=== PATIENT | male | born 1960 | race Caucasian/White ===

== ENCOUNTER 2017-01-12 23:49 | Emergency (ER) | payer OTHER ==
[~2017-01-12 23:49] MED LIST: AMB5 PO; ASAB PO; ATV.5 PO; CRESTOR40 MG PO; EFFIENT10 PO; HYDROCODONE; LOFIB160 PO; LOP25 PO; LORT7 PO; LORTAB10 PO; PRIN5 PO; ULTRAM50 PO; WELLSR150 PO
[2017-01-13 00:13] LABS: BASOPHILS 0.3 %; BASOPHILS ABSOLUTE 0.03 10/3/uL (0.0-0.16); EOSINOPHILS 2.1 %; EOSINOPHILS ABSOLUTE 0.19 10/3/uL (0.0-0.53); ER CBC TAT 0 Hrs 07 Mins; HEMATOCRIT 50.5 % (40.0-51.0); HEMOGLOBIN 17.5 g/dL (13.6-17.8); IMMATURE GRANULOCYTES 0.2 %; IMMATURE GRANULOCYTES ABSOLUTE 0.02 10/3/uL (0.0-0.11); LYMPHOCYTES 29.4 %; LYMPHOCYTES ABSOLUTE 2.64 10/3/uL (0.67-4.30); MANUAL DIFF NO %; MEAN CORPUS HGB CONC 34.7 g/dL (32.0-36.0); MEAN CORPUSCULAR HEMOGLOB 31.8 pg (26.0-34.0); MEAN CORPUSCULAR VOLUME 91.7 fL (80-100); MEAN PLATELET VOLUME 12.1 fL (9.2-13.0); MONOCYTES 6.7 %; NEUTROPHILS 61.3 %; PLATELET COUNT 218 10/3/uL (150-400); RBC DISTRIBUTION WIDTH 12.9 % (12.0-16.0); RED CELL COUNT 5.51 10/6/uL (4.7-6.1)
[2017-01-13 00:19] LABS: INTERNATIONAL NORMAL RATI 1.1 UNITS (-); PARTIAL THROMBO TIME 34.2 SEC (22.5-37.2); PROTIME (NOT ORD) 13.8 SEC (12.0-14.5)
[2017-01-13 00:34] LABS: BUN (BLOOD UREA NITROGEN) 17 MG/DL (6-23); CALCIUM, SERUM 9.4 MG/DL (8.5-10.4); CHEST PAIN PROFILE TAT 0 Hrs 28 Mins; CHLORIDE, SERUM 101 MMOL/L (96-112); CO2 (CARBON DIOXIDE) 28 MMOL/L (24-34); GFR AFRICAN AMERICAN 87 ML/MIN (>=60); GFR NON AFRICAN AMERICAN 75 ML/MIN (>=60); GLUCOSE, SERUM 96 MG/DL (60-99); POTASSIUM, SERUM 4.6 MMOL/L (3.5-5.3); SODIUM, SERUM 139 MMOL/L (135-148); TROPONIN I <0.02 NG/ML (<0.05)
[2017-02-20] MEDS ORDERED: ALEVE220 MG PO (09:00)
== END 2017-01-13 04:15 | disposition home or self-care (01) ==
LOC: ER 23:49
PROVIDERS: Emergency Medicine
DX: R07.9 Chest pain, unspecified (principal); I25.2 Old myocardial infarction; Z95.5 Presence of coronary angioplasty implant and graft; Z79.899 Other long term (current) drug therapy; Z79.82 Long term (current) use of aspirin
CPT/HCPCS: 71020; 80048; 83735; 84484; 85025; 85610; 85730; 93005; 99285

== ENCOUNTER 2017-01-15 14:53 | Observation (INO) | payer OTHER ==
--- NOTE | ~2017-01-15 | HP ---
History And Physical [place] [address] [facility] [place]. [address] NAME: KAMRYN ALBERT : 62 STATUS : ADM Mayuri PAT#: [id number] AGE: 56 ADM/REG DATE : 01/15/17 MR#: [id number] REPORT SERV DATE: 01/16/17 DICTATED BY: YANI KEYES DATE: 01/16/17 REPORT STATUS : Draft TRANSCRIBED BY: ARMANDO DATE: 01/16/17 DATE OF ADMISSION: 01/15/2017 AUDIOLOGY TECHNICIAN: Jese Benitez M.D. CHIEF COMPLAINT: Chest pressure. HISTORY OF PRESENT ILLNESS: A very pleasant 56-year-old white gentleman with known history of CAD, status post JULIANA to RCA in 2011 with PTCA to his left subclavian artery by Dr. Ley in 2012. The patient reports episodic chest pain since 01/12/2017. He did come to our emergency room on Sunday recently, but chose to go home. Prior to any stress testing the patient states that on 01/12/2017 around 2300, he experienced some shortness of breath and chest pressure that is when he came to our emergency room was checked out with lab and EKG, but chose to go home. Sunday, he was gardening and had similar symptoms. He reports associated shortness of breath, diaphoresis, and dizziness. Denies nausea or belching. He did see his PCP on 01/15/2017. [facility] was notified as well. He has an appointment with Dr. Benitez on 01/18/2017, but he had chest pain later on Sunday around 1400 described as a different and stabbing in nature that radiated down his left arm. He did take one nitroglycerin with relief, and he felt it prudent to come to the emergency room. He rates his chest pain an 8/10 at its most intense at time of interview in the CPOU. He is pain free. The episode lasted several minutes in duration. There seems to be some degree of an exertional component with gardening, but also he has had symptoms at rest. The patient confirms a personal history of one heart attack in 2011. Denies history of stroke, DVT, or pulmonary embolus. The patient denies any recent fever or chills. No palpitations. No syncopal episodes. Denies PND or orthopnea. PAST MEDICAL HISTORY: 1. CAD. a. Status post [place] 2011 with JULIANA to RCA. b. PVD status post PTCA to the left subclavian artery by Dr. Ley followed every six months. 2. Hypertension. 3. Dyslipidemia. 4. Chronic back pain. 5. Ongoing tobacco abuse. 6. Positive family history for early CAD. PAST SURGICAL HISTORY: 1. Left knee surgery. 2. Lumbar surgery. 3. Tonsillectomy. SOCIAL HISTORY: He is with two children. He is a window installation subcontractor. Does not have a structured exercise routine. Smokes at least two packs of cigarettes per day for 40 History And Physical [address] [address] NAME: KAMRYN ALBERT : 62 STATUS : ADM Mayuri PAT#: [id number] AGE: 56 ADM/REG DATE : 01/15/17 MR#: [id number] REPORT SERV DATE: 01/16/17 DICTATED BY: YANI KEYES DATE: 01/16/17 REPORT STATUS : Draft TRANSCRIBED BY: ARMANDO DATE: 01/16/17 years. Denies alcohol or illicits. FAMILY HISTORY: Mother with a stroke at 59, remains alive at 75. Father of cirrhosis. REVIEW OF SYSTEMS: A 14-point review of systems performed, significant for HPI. No other contributory diagnoses identified. ALLERGIES: INTOLERANCE TO A FLU SHOT, THE SITE SWELLED. HOME MEDICINES: Aspirin 81 mg daily, Lipitor 80 mg daily, vitamin B 1000 mcg daily, gingko biloba daily, Halfway 10/325 every six hours p.r.n., levothyroxine 50 mcg daily, Ativan 0.5 mg every 8 hours p.r.n., Skelaxin DC'd, Robaxin 750 every four hours p.r.n., nitroglycerin p.r.n., Prevagen daily. PHYSICAL EXAMINATION: VITAL SIGNS: Blood pressure 152/81, pulse 76, respirations 16, temperature 98.8, O2 saturation 98% on room air. Height 5 feet 8 inches, weight 173 pounds, BMI 26. GENERAL: Cooperative, in no apparent distress. HEENT: Pupils 2 mm, sclera nonicteric. Nares patent. Moist mucous membranes. No xanthelasma. NECK: Trachea midline, no thyromegaly. No JVD. No bruits. LYMPH: No cervical lymphadenopathy. No supraclavicular lymphadenopathy. RESPIRATORY: Unlabored respirations. Breath sounds clear bilaterally to posterior auscultation. No wheezes or rhonchi. CARDIOVASCULAR: Regular rate. No murmur, rub or gallop appreciated. Extremities without edema. Pulses 2+ bilaterally. ABDOMEN: Soft, nontender, nondistended, normal bowel sounds auscultated throughout. No organomegaly. SKIN: Warm, dry extremities. No pallor, or cyanosis. PSYCHIATRIC: Appropriate affect. Alert, oriented x3. LABORATORY DATA: Troponin less than 0.02 x3. Potassium 4.5, BUN 14, creatinine 0.95, glucose 89. Magnesium 2.2. WBC 9.3, hemoglobin 16.0, hematocrit 45.9, platelet count 205,000. EKG, sinus rhythm with inferior Q-waves. MPI 09/2015: Poncho stage 2, 6 minutes, 7 METs, no ischemia. PCI [address] Flor, JULIANA to mid RCA. 2012 PTCA of left subclavian artery by Av. CTA of chest, no PE. Solitary mildly enlarged right peritracheal lymph node of uncertain clinical significance. Minor subsegmental atelectasis both lung bases. ASSESSMENT AND PLAN: 1. Substernal chest pain. The patient with multiple risk factors. The patient has been History And Physical [address] [address] NAME: KAMRYN ALBERT : 62 STATUS : ADM Mayuri PAT#: [id number] AGE: 56 ADM/REG DATE : 01/15/17 MR#: [id number] REPORT SERV DATE: 01/16/17 DICTATED BY: YANI KEYES DATE: 01/16/17 REPORT STATUS : Draft TRANSCRIBED BY: ARMANDO DATE: 01/16/17 observed in the CPOU overnight to rule out myocardial infarction with serial enzymes and serial EKGs. Held n.p.o. We will proceed with MPI today. The patient will be discharged home with low risk, no ischemia. If anything suggestive of ischemia, Cardiology referral will be initiated. Otherwise, the patient will be asked to follow up with PCP and Dr. Benitez as scheduled. 2. Coronary artery disease, continue home medications. 3. Peripheral vascular disease, follow up Dr. Ley. Continue home medications. 4. Hypertension, monitor blood pressure. Continue home medications. 5. Dyslipidemia, continue statin. 6. Ongoing tobacco abuse. Counseled strongly regarding cessation for cardiovascular health and well being. 7. Abnormal CTA of chest with an enlarged right paratracheal lymph node. Follow up with PCP for further evaluation, referral and/or repeat CT scan. TRAM/ARMANDO MARTÍN Allen, ORDER RUNNER-BC / [id number] CC: Yani Keyes, MARTÍN, ORDER RUNNER-BC Kerethi Muñoz II, Jr., M.D.
[2017-01-15 15:12] LABS: BASOPHILS 0.3 %; BASOPHILS ABSOLUTE 0.03 10/3/uL (0.0-0.16); EOSINOPHILS 1.4 %; EOSINOPHILS ABSOLUTE 0.13 10/3/uL (0.0-0.53); ER CBC TAT 0 Hrs 10 Mins; HEMATOCRIT 45.9 % (40.0-51.0); IMMATURE GRANULOCYTES 0.3 %; IMMATURE GRANULOCYTES ABSOLUTE 0.03 10/3/uL (0.0-0.11); LYMPHOCYTES 26.6 %; LYMPHOCYTES ABSOLUTE 2.47 10/3/uL (0.67-4.30); MEAN CORPUS HGB CONC 34.9 g/dL (32.0-36.0); MEAN CORPUSCULAR HEMOGLOB 31.7 pg (26.0-34.0); MEAN CORPUSCULAR VOLUME 91.1 fL (80-100); MEAN PLATELET VOLUME 12.1 fL (9.2-13.0); MONOCYTES 7.2 %; MONOCYTES ABSOLUTE 0.67 10/3/uL (0.21-1.20); NEUTROPHILS 64.2 %; NEUTROPHILS ABSOLUTE 5.94 10/3/uL (2.02-8.40); PLATELET COUNT 205 10/3/uL (150-400); RBC DISTRIBUTION WIDTH 13.1 % (12.0-16.0); RED CELL COUNT 5.04 10/6/uL (4.7-6.1); WHITE BLOOD CELLS 9.3 10/3/uL (4.5-10.5)
[2017-01-15 15:13] LABS: MANUAL DIFF NO %
[2017-01-15 15:14] LABS: PROTIME (NOT ORD) 13.2 SEC (12.0-14.5)
[2017-01-15 15:15] LABS: PARTIAL THROMBO TIME 33.4 SEC (22.5-37.2)
[2017-01-15 15:22] LABS: BUN (BLOOD UREA NITROGEN) 14 MG/DL (6-23); CALCIUM, SERUM 8.9 MG/DL (8.5-10.4); CHEST PAIN PROFILE TAT 0 Hrs 20 Mins; CHLORIDE, SERUM 103 MMOL/L (96-112); CO2 (CARBON DIOXIDE) 28 MMOL/L (24-34); CREATININE 0.95 MG/DL (0.70-1.30); GFR AFRICAN AMERICAN 104 ML/MIN (>=60); GFR NON AFRICAN AMERICAN 90 ML/MIN (>=60); GLUCOSE, SERUM 89 MG/DL (60-99); POTASSIUM, SERUM 4.5 MMOL/L (3.5-5.3); SODIUM, SERUM 139 MMOL/L (135-148); TROPONIN I <0.02 NG/ML (<0.05)
[2017-01-15] MEDS ORDERED: METHOC750B PO (18:56)
[2017-01-15] MEDS ORDERED: NITROSTAT0.4 MG SL (18:56)
[2017-01-15] MEDS ORDERED: LIPITOR80 MG PO (18:57)
[2017-01-15] MEDS ORDERED: ATV.5 PO (18:57)
[2017-01-15] MEDS ORDERED: NORCO1 TAB PO (18:57)
[2017-01-15] MEDS ORDERED: CYANO1000T PO (18:58)
[2017-01-15] MEDS ORDERED: GINKGO BILO2 PO (18:58)
[2017-01-15] MEDS ORDERED: SKELAXIN8 PO (18:58)
[2017-01-15] MEDS ORDERED: LEVOTHYROXIN50 MCG PO (18:59)
[2017-01-15] MEDS ORDERED: HALF81 PO (18:59)
[2017-01-15] MEDS ORDERED: PREVAGEN PO (18:59)
[2017-02-20] MEDS ORDERED: ALEVE220 MG PO (09:00)
== END 2017-01-16 15:20 | disposition home or self-care (01) ==
LOC: ER 14:53 → CDU1 22:01 → CDU2 22:14
PROVIDERS: Emergency Medicine
DX: R07.2 Precordial pain (principal); I25.10 Atherosclerotic heart disease of native coronary artery without angina pectoris; I25.2 Old myocardial infarction; I73.9 Peripheral vascular disease, unspecified; I10 Essential (primary) hypertension; E78.5 Hyperlipidemia, unspecified; Z98.890 Other specified postprocedural states; F17.210 Nicotine dependence, cigarettes, uncomplicated; Z88.8 Allergy status to other drugs, medicaments and biological substances; Z79.82 Long term (current) use of aspirin; Z79.899 Other long term (current) drug therapy
CPT/HCPCS: 71020; 71275; 78452; 80048; 83735; 84484; 85025; 85610; 85730; 93005; 93017; 99285; A9270-GY; A9502; G0378; Q9967

== ENCOUNTER 2017-02-21 09:13 | Day surgery (SDC) | payer OTHER ==
--- NOTE | ~2017-02-21 | CN ---
Consultation Report [facility] [address] [place]. [address] NAME: KAMRYN REDDY : 62 STATUS : [facility]#: [id number] AGE: 56 ADM/REG DATE : 02/21/17 MR#: [id number] REPORT SERV DATE: 02/22/17 DICTATED BY: BLAIR SHERIDAN DATE: 02/21/17 REPORT STATUS : Draft TRANSCRIBED BY: MODBraden DATE: 02/21/17 CONSULTATION DATE OF CONSULTATION: Dear Dr. Daniele Bacon: Thank you for requesting my opinion regarding evaluation and management of Mr. Kamryn Reddy's mediastinal lymphadenopathy and tobacco abuse. Mr. Reddy is an extremely pleasant 56-year-old gentleman with a significant past medical history of heavy tobacco abuse and former alcoholic, who presents to [facility] for formal evaluation of mediastinal lymphadenopathy. The patient was undergoing a workup for chest pain and had chest x-ray and subsequent CT scan of the chest that demonstrated mediastinal lymphadenopathy. He had a sole mediastinal lymph node by RECIST criteria located at the 4R location of right paratracheal region that was abnormal. The patient subsequently had a stress test, which was negative, and the patient's daughter is a former trauma ER nurse and currently studying for [employer] school and spoke with Dr. Ilda Justice, an manager fleet, here at [facility]. They discussed the case as well as with Dr. Bacon and decided to proceed forward with further investigation and formal evaluation for possible biopsy. The patient states that he has chronic shortness of breath, well localized to the chest, nonradiating, with no significant alleviating or exacerbating factors. He describes it as mild. He does not have any current chest pain, dizziness, or orthopnea. He denies any fevers, chills, night sweats, nausea, vomiting, diarrhea, or constipation. REVIEW OF SYSTEMS: A detailed 14-point review of systems was completed. Pertinent positives and negatives are listed above. ALLERGIES: NO KNOWN DRUG ALLERGIES. HOME MEDICATIONS: Reviewed and located in the paper chart. PAST MEDICAL HISTORY: 1. Tobacco abuse, 2 to 3 packs per day. 2. Dyslipidemia. 3. Coronary artery disease, status post NSTEMI in March 2012. 4. Anxiety. 5. Chronic neck and back pain. 6. Gout. 7. Hypogonadism. 8. Hypothyroidism. PAST SURGICAL HISTORY: 1. Tonsillectomy at age 7. Consultation Report [address] [place]. [address] NAME: KAMRYN REDDY : 62 STATUS : [facility] PAT#: [id number] AGE: 56 ADM/REG DATE : 02/21/17 MR#: [id number] REPORT SERV DATE: 02/22/17 DICTATED BY: BLAIR SHERIDAN DATE: 02/21/17 REPORT STATUS : Draft TRANSCRIBED BY: ARMANDO DATE: 02/21/17 2. Left knee arthroscopy in 1987 and 2002. 3. JULIANA to the right coronary artery in March 2012. 4. Two lower disc replacements in back in May 2011. 5. Left subclavian angioplasty in August 2014. 6. Colonoscopy and internal hemorrhoids and diverticulosis on 03/18/2014. 7. Stent placement in the left subclavian artery in January 2016. FAMILY HISTORY: Mother alive; CVA, migraine, stroke, gout, hypertension, and diabetes. Father at age 63 from cirrhosis of the liver. Siblings with hypertension, 3 siblings. Additional family history of thyroid and kidney disease. 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 He is a former heavy alcoholic and is currently in AA. He is also a heavy smoker, smokes 2 to 3 packs per day and continues to smoke for over 35 years. He denies any history or illicit drug abuse or issues, and does not regularly exercise. PHYSICAL EXAMINATION: VITAL SIGNS: Reviewed and located in the paper chart. GENERAL: No acute distress. Able to communicate in full paragraphs at a time. HEENT: Normocephalic and atraumatic. Pupils are equal, round, reactive to light and accommodation. Posterior oropharynx is clear. NECK: No JVD. No LAD. Trachea midline. CARDIOVASCULAR: Regular rate and rhythm. S1 and S2 present. LUNGS: Clear to auscultation bilaterally. ABDOMEN: Nontender, nondistended, soft. Positive bowel sounds. EXTREMITIES: No clubbing, cyanosis, or edema. SKIN: No new rashes, lesions, or ulcers. PSYCHIATRIC: Alert and oriented x3. Appropriate mood and affect. Appropriate insight and judgment. NEUROLOGIC: 5/5 strength in the upper and lower extremities. Cranial nerves II through XII intact. Gait not tested. DTRs not performed. DIAGNOSTIC STUDIES: 1. CT scan of the chest performed on 01/15/2017 was personally reviewed by me and I agree with the following interpretation: No evidence of pulmonary embolism. Minor subsegmental atelectasis in both lungs. 2. Solitary mildly enlarged right paratracheal lymph node of uncertain significance. ASSESSMENT AND PLAN: Mr. Kamryn Reddy is an exceedingly pleasant 56-year-old gentleman with a significant past medical history of heavy tobacco abuse of 2 to 3 packs per day, former alcoholic, and coronary artery disease, who presented initially with chest pain. He Consultation Report [address] [place]. [address] NAME: KAMRYN REDDY : 62 STATUS : [facility]#: [id number] AGE: 56 ADM/REG DATE : 02/21/17 MR#: [id number] REPORT SERV DATE: 02/22/17 DICTATED BY: BLAIR SHERIDAN DATE: 02/21/17 REPORT STATUS : Draft TRANSCRIBED BY: ARMANDO DATE: 02/21/17 had a chest x-ray in addition to a CTA of the chest and stress test. The stress test did not demonstrate any active ischemia, but CT scan of the chest performed on 01/15/2017 demonstrated solidly mildly enlarged right paratracheal lymph node of unclear significance. The differential diagnosis includes reactive adenopathy, lymphoma, metastatic disease, and sarcoidosis. After careful discussion with Mr. Reddy and his daughter, the PRINTER SLOTTER HELPER student, they agreed to proceed forward with biopsy. We did discuss in detail the potential options including thoracic surgical biopsy by mediastinoscopy or VATS or EBUS bronchoscopy. We also briefly discussed continued observation. Given his profound smoking history, a family member also who had developed lymphoma, the patient wished to proceed forward with EBUS bronchoscopy. The patient is aware that the procedure is associated with potential life-threatening risks including lung collapse, respiratory failure, and even . RECOMMENDATIONS: A summary of my recommendations is as follows: 1. Proceed with EBUS bronchoscopy. 2. Smoking cessation counseling provided. 3. Follow up in our Pulmonary Clinic regarding results and continued management. Thank you for allowing me to participate in Mr. Kamryn Reddy's care. Sincerely, LORRIE/ARMANDO Blair Sheridan M.D. / [id number] CC: Keerthi Mederos II, M.D.
--- NOTE | ~2017-02-21 | EGD ---
EGD REPORT [facility] [address] [address] NAME: KAMRYN REDDY : 62 STATUS : [facility]#: [id number] AGE: 56 ADM/REG DATE : 02/21/17 MR#: [id number] REPORT SERV DATE: 02/21/17 DICTATED BY: YUE SHERIDAN DATE: 02/21/17 REPORT STATUS : Draft [facility]ANS[facility]ED [facility]: [facility] DATE: 02/21/17 Pulmonology Patient Name: Kamryn Reddy Procedure Date: 02/21/2017 1:03 PM Date of : 1960 Attending MD: LUCILLE SHERIDAN MD Procedure Date No Time: 02/21/2017 Procedure: EBUS Indications: Mediastinal adenopathy Providers: LUCILLE SHERIDAN MD Referring MD: GUERO MCLEOD II Medicines: Lidocaine 2% 20 mL Complications: No immediate complications Procedure: Pre-Anesthesia Assessment: - ASA Grade Assessment: III - A patient with severe systemic disease. - A History and Physical has been performed. Patient meds and allergies have been reviewed. The risks and benefits of the procedure and the sedation options and risks were discussed with the patient. All questions were answered and informed consent was obtained. Patient identification and proposed procedure were verified prior to the procedure by the physician and the nurse in the pre-procedure area in the procedure room. Mental Status Examination: alert and oriented. Airway Examination: normal oropharyngeal airway. Respiratory Examination: poor air movement. CV Examination: normal and RRR, no murmurs, no S3 or S4. ASA Grade Assessment: III - A patient with severe systemic disease. After reviewing the risks and benefits, the patient was deemed in satisfactory condition to undergo the procedure. The anesthesia plan was to use general anesthesia. Immediately prior to administration of medications, the patient was re-assessed for adequacy to receive sedatives. The heart rate, respiratory rate, oxygen saturations, blood pressure, adequacy of pulmonary ventilation, and response to care were monitored throughout the procedure. The physical status of the patient was re-assessed after the procedure. After obtaining informed consent, the BF [id number] was introduced through the mouth, via laryngeal mask airway and advanced to the tracheobronchial tree. the Bronchoscope was introduced through the and advanced to the. The procedure was accomplished without difficulty. The patient tolerated the procedure well. EGD REPORT [place] [id number] [place]. [address] NAME: KAMRYN REDDY : 62 STATUS : [facility] [place] PAT#: [id number] AGE: 56 ADM/REG DATE : 02/21/17 MR#: [id number] REPORT SERV DATE: 02/21/17 DICTATED BY: YUE SHERIDAN DATE: 02/21/17 REPORT STATUS : Draft TRANSCRIBED BY: [employer] DATE: 02/21/17 Findings: The laryngeal mask airway is in normal position. The vocal cords move normally with breathing. The subglottic space is normal. The trachea is of normal caliber. The amol is sharp. The tracheobronchial tree was examined to at least the first subsegmental level. Bronchial mucosa and anatomy are normal; there are no endobronchial lesions, and no secretions. EBUS TBNA of lymph node level 11L x 4 passes for cytology EBUS TBNA of lymph node level 7 x 6 passes for cytology EBUS TBNA of lymph node level 4R x 8 passes for cytology Impression: Rapid On-Site Evaluation (JORGE L): Preliminary cytology is "NORMAL LYMPHOCYTES" (final results are pending). Recommendation: - Chest X-ray post-procedure. - Follow up in clinic. - Await test results. Attending Participation: I personally performed the entire procedure. LUCILLE SHERIDAN MD 02/21/2017 2:44 PM This report has been signed electronically. Number of Addenda: 0 Note Initiated On: 02/21/2017 1:03 PM [address] [address]
[~2017-02-21 09:13] MED LIST changes: +ALEVE220 MG PO; +CYANO1000T PO; +GINKGO BILO2 PO; +HALF81 PO; +LEVOTHYROXIN50 MCG PO; +LIPITOR80 MG PO; +METHOC750B PO; +NITROSTAT0.4 MG SL; +NORCO1 TAB PO; +PREVAGEN PO; +SKELAXIN8 PO
[2017-02-21 09:32] LABS: BASOPHILS 0.4 %; BASOPHILS ABSOLUTE 0.03 10/3/uL (0.0-0.16); EOSINOPHILS 3.3 %; EOSINOPHILS ABSOLUTE 0.25 10/3/uL (0.0-0.53); HEMATOCRIT 46.2 % (40.0-51.0); IMMATURE GRANULOCYTES 0.4 %; IMMATURE GRANULOCYTES ABSOLUTE 0.03 10/3/uL (0.0-0.11); LYMPHOCYTES 28.8 %; LYMPHOCYTES ABSOLUTE 2.21 10/3/uL (0.67-4.30); MEAN CORPUS HGB CONC 34.6 g/dL (32.0-36.0); MEAN CORPUSCULAR HEMOGLOB 30.8 pg (26.0-34.0); MEAN PLATELET VOLUME 11.8 fL (9.2-13.0); MONOCYTES ABSOLUTE 0.54 10/3/uL (0.21-1.20); NEUTROPHILS 60.1 %; NEUTROPHILS ABSOLUTE 4.62 10/3/uL (2.02-8.40); PLATELET COUNT 200 10/3/uL (150-400); RBC DISTRIBUTION WIDTH 13.5 % (12.0-16.0); RED CELL COUNT 5.19 10/6/uL (4.7-6.1); WHITE BLOOD CELLS 7.7 10/3/uL (4.5-10.5)
[2017-02-21 09:34] LABS: MANUAL DIFF NO %
[2017-02-21 09:42] LABS: BUN (BLOOD UREA NITROGEN) 13 MG/DL (6-23); CALCIUM, SERUM 9.7 MG/DL (8.5-10.4); CHLORIDE, SERUM 107 MMOL/L (96-112); CO2 (CARBON DIOXIDE) 31 MMOL/L (24-34); GFR AFRICAN AMERICAN 98 ML/MIN (>=60); GFR NON AFRICAN AMERICAN 84 ML/MIN (>=60); GLUCOSE, SERUM 105 MG/DL (60-99); SODIUM, SERUM 142 MMOL/L (135-148)
[2017-02-21 09:48] LABS: INTERNATIONAL NORMAL RATI 1.1 UNITS (-); PROTIME (NOT ORD) 13.6 SEC (12.0-14.5)
[2017-02-21 09:49] LABS: PARTIAL THROMBO TIME 36.5 SEC (22.5-37.2)
== END 2017-02-21 22:49 | disposition home or self-care (01) ==
LOC: DMU 09:13
PROVIDERS: Anesthesiology; Internal Medicine
PROC: BB4BZZZ Ultrasonography of Pleura (ICD-10-PCS; 2017-02-21)
PROC: 07B74ZX Excision of Thorax Lymphatic, Percutaneous Endoscopic Approach, Diagnostic (ICD-10-PCS; principal; 2017-02-21 11:30)
DX: R59.0 Localized enlarged lymph nodes (principal); E78.5 Hyperlipidemia, unspecified; F17.210 Nicotine dependence, cigarettes, uncomplicated; E78.00 Pure hypercholesterolemia, unspecified; I25.10 Atherosclerotic heart disease of native coronary artery without angina pectoris; I73.9 Peripheral vascular disease, unspecified; I25.2 Old myocardial infarction; F41.9 Anxiety disorder, unspecified; E03.9 Hypothyroidism, unspecified; Z98.890 Other specified postprocedural states; Z88.8 Allergy status to other drugs, medicaments and biological substances
CPT/HCPCS: 71010; 80048; 85025; 85610; 85730; 87015; 87070; 87102; 87116; 87205; 88172; 88173; 88305; 93005; A9270-GY; C1725; J2250; J3010